=== PATIENT | female | born 1980 | race Caucasian/White ===

== ENCOUNTER → 2019-09-17 | Outpatient (CLI) | payer OTHER | LOC: EDSTATUS 08:00 → SDCO 08:00 → COL.LAB 09:13 → SDCO 09:13 | DX: Z20.828 Contact with and (suspected) exposure to other viral communicable diseases (principal); K50.10 Crohn's disease of large intestine without complications ==

== ENCOUNTER → 2019-10-24 | Outpatient (CLI) | payer OTHER | LOC: COL.RAD 06:53 | DX: K50.10 Crohn's disease of large intestine without complications (principal); K63.3 Ulcer of intestine | CPT/HCPCS: A9585 ==